=== PATIENT | male | born 1940 | race Caucasian/White ===

== ENCOUNTER 2017-01-25 12:15 | Emergency (ER) | payer MEDICARE, BC ==
[~2017-01-25] VITALS: Ht 180.3 cm; Wt 88.5 kg
--- NOTE | 2017-01-25 12:56 | PHYS DOC ---
Past Medical History Past Medical History: Hypertension Past Medical History Chronic renal failure Gout Alcohol Use: None Drug Use: None Adult General Chief Complaint Chief Complaint: BACK PAIN - NO INJURY HPI HPI Patient is a 76 year old male who presents with two-day history of some pain in the right thigh, gradual onset described as dull and does not radiate anywhere else other than the leg on the right side. Uncertain if the pain comes from the back seen by the chiropractor yesterday and they did not do a adjustment secondary to concerns for possible DVT in the right leg. Denies any flank pain dysuria or frequency or fever. Denies prior back injury or surgery. Does report history of chronic renal failure. Not on anticoagulants. Denies trauma. Review of Systems Review of Systems Constitutional: Denies fever or chills [] Eyes: Denies change in visual acuity, redness, or eye pain [] HENT: Denies nasal congestion or sore throat [] Respiratory: Denies cough or shortness of breath [] Cardiovascular: No additional information not addressed in HPI [] GI: Denies abdominal pain, nausea, vomiting, bloody stools or diarrhea [] : Denies dysuria or hematuria [] Musculoskeletal: Denies back pain or joint pain [] Integument: Denies rash or skin lesions [] Neurologic: Denies headache, focal weakness or sensory changes [] Endocrine: Denies polyuria or polydipsia [] Allergies Allergies Allergies Coded Allergies Type Severity Reaction Last Updated Verified No Known Drug Allergies 01/25/17 No Physical Exam Physical Exam Constitutional: Well developed, well nourished, no acute distress, non-toxic appearance. [] HENT: Normocephalic, atraumatic, bilateral external ears normal, oropharynx moist, no oral exudates, nose normal. [] Eyes: PERRLA, EOMI, conjunctiva normal, no discharge. [] Neck: Normal range of motion, no tenderness, supple, no stridor. [] Cardiovascular:Heart rate regular rhythm, no murmur [] Lungs & Thorax: Bilateral breath sounds clear to auscultation [] Abdomen: Bowel sounds normal, soft, no tenderness, no masses, no pulsatile masses. [] Skin: Warm, dry, no erythema, no rash. [] Back: No tenderness, no CVA tenderness. [No midline CT or L-spine tenderness. No bruising or ecchymosis.] Extremities: No tenderness, no cyanosis, no clubbing, ROM intact, no edema. [He does have prominent moderate varicosities in the veins of both legs. Leg does not appear swollen. 2+ pulses in the foot and ankle.] Neurologic: Alert and oriented X 3, normal motor function, normal sensory function, no focal deficits noted. [5 out of 5 motor strength in the upper and lower extremities, 2+ patellar reflexes, normal dorsiflexion and great toe bilaterally. Patient is able to walk without difficulty.] Psychologic: Affect normal, judgement normal, mood normal. [] Current Patient Data Vital Signs Vital Signs Date Time Temp Pulse Resp B/P (MAP) Pulse Ox O2 Delivery O2 Flow Rate FiO2 01/25/17 14:46 70 18 167/83 (111) 98 Room Air 01/25/17 12:40 98.3 98.3 Lab Values Patient refused any labs EKG EKG [] Radiology/Procedures Radiology/Procedures Lumbar x-ray shows degenerative joint disease no fractures images reviewed by me report reviewed by me from radiology. Ultrasound venous right lower extremity report reviewed by me negative for DVT [ ] Course & Med Decision Making Course & Med Decision Making Pertinent Labs and Imaging studies reviewed. (See chart for details) [Plan of care will include lumbar x-rays and ultrasound venous right leg to exclude DVT. Patient is declining pain meds at this moment in time.] Dragon Disclaimer Dragon Disclaimer This electronic medical record was generated, in whole or in part, using a voice recognition dictation system. Departure Departure Impression: Primary Impression: Right thigh pain Disposition: HOME, SELF-CARE Condition: STABLE Referrals: CLAUDETTE GONGORA MD (PCP) TAPAN BOURGEOIS MD January 25, 2017 12:56
--- NOTE | 2017-01-25 13:21 | RAD ---
Lumbar spine, 3 views, 01/25/2017: History: Low back pain radiating to the right leg The lumbar vertebral heights are well-maintained. The intervertebral disc spaces are well preserved. There are moderate scattered marginal spurs. There are mild degenerative changes involving the facet joints in the lower lumbar spine. No fracture or dislocation is evident. Aortoiliac calcific plaquing is present. IMPRESSION: 1. Mild scattered degenerative changes. 2. No acute bony abnormality is detected.
--- NOTE | 2017-01-25 13:51 | RAD ---
Indication right leg pain. Grayscale color Doppler and spectral imaging was performed. Examination was targeted to the veins of the right lower extremity. The common femoral, femoral and popliteal vessels demonstrate normal flow compressibility and augmentation. No thrombus is seen. The visualized calf veins appeared normal. The left common femoral vein appeared normal. IMPRESSION: Negative right lower extremity venous analysis for DVT
[2017-01-25 14:46] VITALS: BP 167/83
== END 2017-01-25 14:47 | disposition home or self-care (01) ==
LOC: ER 12:15
DX: I83.813 Varicose veins of bilateral lower extremities with pain (principal); I12.9 Hypertensive chronic kidney disease with stage 1 through stage 4 chronic kidney disease, or unspecified chronic kidney disease; N18.9 Chronic kidney disease, unspecified; M10.9 Gout, unspecified
CPT/HCPCS: 72100; 93971; 99284-25

== ENCOUNTER 2019-04-04 08:05 | Day surgery (SDC) | payer BC, MEDICARE ==
[~2019-04-04] VITALS: Ht 177.8 cm; Wt 84.0 kg
[~2019-04-04 08:05] MED LIST: ACETAMINOPHEN 500 MG TABLET PO ONE; ALLO100T PO; ASPI-630 PO; ATOR20TA58 PO; DUTA0.5C PO; HEPARIN SODIUM 5,000 UNIT in IV NORMAL SALINE 500ML BAG 500 ML IRR ONE; IV RINGERS,LACTATED 1000ML 1,000 ML IV SCH; LIDOCAINE 1% 20 ML VIAL. ONE; LIDOCAINE 1% PF 2 ML VIAL. ID PRN; LOSA-73 PO; METO-239 PO; ONDANSETRON PF 4 MG/2 ML VIAL. IV PRN; PAPAVERINE 60 MG/2 ML VIAL FOR OR ONLY. ONE; PROCHLORPERAZINE 10 MG/2 ML VIAL. IV PRN; SURGICEL FIBRILLAR 1X2 EACH. ONE; VIT1TABL71 PO; fentaNYL PF VIAL 100 MCG/2 ML VIAL IV PRN
[2019-04-04] MEDS ORDERED: IV NORMAL SALINE 1000ML BAG 1,000 ML IV SCH (08:45)
[2019-04-04] MEDS ORDERED: IV RINGERS,LACTATED 1000ML 1,000 ML IV SCH (08:45)
[2019-04-04 08:47] LABS: BASO % 1 % (0-3); EOS # 0.3 x10^3/uL (0.0-0.7); EOS % 4 % (0-3); HEMATOCRIT 33.1 % (39.0-53.0); HEMOGLOBIN 11.2 g/dL (13.0-17.5); LYMPH # 1.9 x10^3/uL (1.0-4.8); LYMPH % 31 % (24-48); MEAN CORPUSCULAR HEMOGLOBIN 32 pg (25-35); MEAN CORPUSCULAR HGB CONC 34 g/dL (31-37); MEAN CORPUSCULAR VOLUME 95 fL (79-100); MONO # 0.6 x10^3/uL (0.0-1.1); MONO % 10 % (0-9); NEUT # 3.4 x10^3/uL (1.8-7.7); NEUT % 55 % (31-73); PLATELET COUNT 151 x10^3/uL (140-400); RED BLOOD COUNT 3.49 x10^6/uL (4.30-5.70); RED CELL DISTRIBUTION WIDTH 13.6 % (11.5-14.5); WHITE BLOOD COUNT 6.2 x10^3/uL (4.0-11.0)
[2019-04-04 09:05] LABS: CALCIUM 8.9 mg/dL (8.5-10.1); CREATININE 3.1 mg/dL (0.7-1.3); GFR 19.6; POTASSIUM 4.7 mmol/L (3.5-5.1)
[2019-04-04] MEDS ORDERED: SEVOFLURANE 31 TO 60 MINUTES. IH ONE (09:56)
[2019-04-04] MEDS ORDERED: PROPOFOL 20 ML IV ONE (09:56)
[2019-04-04] MEDS ORDERED: LIDOCAINE 2% PF 5 ML VIAL. ONE (09:56)
[2019-04-04] MEDS ORDERED: DEXAMETHASONE SOD PHOS 4 MG/ML VIAL ONE (09:57)
[2019-04-04] MEDS ORDERED: ONDANSETRON PF 4 MG/2 ML VIAL. ONE (09:57)
[2019-04-04] MEDS ORDERED: PHENYLEPHRINE in 0.9% NACL PF 1 MG/10 ML SYRINGE. IV ONE (09:58)
[2019-04-04] MEDS ORDERED: ceFAZolin SODIUM 1 GM VIAL ONE ×2 (11:30)
--- NOTE | 2019-04-04 11:38 | DISCH ---
DISCHARGE INSTRUCTIONS Condition on Discharge Condition on Discharge: Stable Activity After Discharge Activity Instructions for Disc: Resume previous activity Other activity instructions: no heavy lifting for two weeks Bathing Instructions: Shower-keep dressing dry (may shower in 48 hours, keep clean and dry after) Wound Incision Care Wound/Incision Care: Keep wound elevated Contacting the DRCelia after DC Call your doctor for: If your condition worsens Follow-Up Follow up with: KEAGAN Benjamin APRN Apr 04, 2019 11:38
--- NOTE | 2019-04-04 11:41 | DISCH ---
DISCHARGE INSTRUCTIONS Condition on Discharge Condition on Discharge: Stable Activity After Discharge Activity Instructions for Disc: Resume previous activity Other activity instructions: no heavy lifting for two weeks Bathing Instructions: Shower-keep dressing dry (may shower in 48 hours, keep clean and dry after) Wound Incision Care Wound/Incision Care: Keep wound elevated Contacting the DRCelia after DC Call your doctor for: If your condition worsens Follow-Up Follow up with: Francine Peraza, 04/18 10:30 KEAGAN COOK APRN Apr 04, 2019 11:41
[2019-04-04] MEDS ORDERED: HEPARIN for IV BOLUS 10,000 UNIT/10 ML VIAL. ONE (12:05)
[2019-04-04] MEDS ORDERED: PHENYLEPHRINE 10 MG/ML VIAL. ONE (12:09)
[2019-04-04] MEDS ORDERED: fentaNYL PF VIAL 100 MCG/2 ML VIAL ONE (12:47)
--- NOTE | 2019-04-04 13:02 | PDOC ---
BRIEF OPERATIVE NOTE Date: Apr 04, 2019 Pre-Op Diagnosis ESRD Post-Op Diagnosis same Procedure Performed Left radial cephalic fistula Removal ganglion cyst Surgeon Dr. German Patients Transporter Keagan Cook NP Anesthesia Type: General Blood Loss 20cc Specimens Obtained left wrist ganglion cyst Findings good thrill and doppler signal Complications none Operative Note see dictated note KEAGAN COOK OCTAVE BOARD ASSEMBLER Apr 04, 2019 13:01
--- NOTE | 2019-04-04 13:06 | PDOC4 ---
OPERATIVE NOTE: April 04, 2019 Vascular surgery operative report Preoperative diagnosis: Chronic kidney disease stage IV Postoperative diagnosis: Same Surgeon: Carlos Mark DO, FACS, RPVI Asst.: Salina Walker NP Procedure: #1--creation of a left radiocephalic AV fistula #2--excision of a left ganglion cyst Estimated blood loss--minimal Complications: None Preoperative indications: This is a pleasant 78-year-old male who presents for AV fistula creation for permanent dialysis access. In addition he requested that a ganglion cyst. Excised at his left wrist which she'll be directly associated with her incision. All risks, benefits, and alternatives of the procedure were discussed with him today and his and they were both in agreement and understood all risks involved. Next Operative procedure: The patient was brought to the operative suite and placed in supine position. After stenosing general anesthesia the left upper extremity is prepped and draped in sterile fashion. Next a timeout procedure was performed. It was confirmed that the correct operative site was marked and draped and the patient did receive appropriate perioperative antibiotics. Following this a left wrist incision was made and carried through the skin and subcutaneous tissue. I identified the cephalic vein at the level of the wrist and this was circumferentially dissected both proximally and distally. The vein at the level of the wrist leading to the hand was ligated with silk ligatures and then the vein was divided. Several large venous tributaries were oversewn using 3-0 silk suture. Following this the radial artery was circumferentially dissected proximally and distally at the level of the wrist. Next the patient was administered heparin per weightbase protocol. After appropriate circulation time, the radial artery was controlled proximally and distally. Next an 11 blade scalpel was used to create an arteriotomy and this was extended using Macario scissors. Following this our vein was trimmed appropriately. Next an end-to-side anastomosis was created using 7-0 Prolene suture in a running fashion. Prior to completing the anastomosis I did backbleed and flush the vessels appropriately. Next the anastomosis was completed and flow was restored to the vein. Patient had excellent thrill throughout the cephalic vein and excellent flow through the proximal and distal radial artery. This was also confirmed using a Doppler. Next a incision was made along the forearm where a large venous tributary was loca derick. This was circumferentially dissected and ligated using a 3-0 silk suture. At this point in time the ganglion cyst was identified at the level of the wrist and this was circumferentially dissected. He had proximal and distal veins leading in and out of this ganglion cyst which are ligated with silk ligatures. Next the cyst was completely excised from the fascia. Was handed off the field as a specimen for permanent section. There was good hemostasis with a cyst was removed. After confirmation of hemostasis the wound was irrigated with anabolic impregnated solution. Next fibrillar was used over the raw surface area. Following this the skin was closed using running 4-0 Vicryl suture in a subcuticular fashion. Dermabond was applied to the skin incisions. The patient tolerated procedure well and was transferred to the postanesthesia care unit in stable condition. Salina Walker was present during the entire case and assisted with opening, the main arterial anastomosis, excision of the ganglion cyst, and subsequent closure. Next Carlos Mark DO, JAMEY, RPVI CARLOS MARK DO Apr 04, 2019 13:06
[2019-04-04] MEDS ORDERED: ACETAMINOPHEN 500 MG TABLET PO ONE (13:15)
[2019-04-04 13:30] VITALS: BP 124/59
--- NOTE | 2019-04-05 14:07 | PATHOLOGY ---
[facility] Accession Number: [id number] . 01 Material submitted: . wrist - LEFT WRIST GANGLION CYST. Modifiers: left . 01 Clinical history: . Necrotic kidney disease stage IV, possible ganglion cyst left wrist. . 02 Diagnosis: Fibrous and adipose tissue, left wrist: - Ganglion cyst. (JPM:blade; 04/05/2019) QMS/04/05/2019 . 02 Electronically signed: . Gato Quintana MD, Pathologist NPI- [id number] . 01 Gross description: . Received in formalin labeled "Leandro Sousa, left wrist ganglion cyst" is an irregular portion of pink-odonnell soft tissue measuring 1.5 x 0.5 x 0.4 cm. Multiple surgical clips are present. The specimen is submitted without sectioning in cassette A1. ([facility]; 04/04/2019) SY/SYC . 02 Pathologist provided ICD-10: M67.432 . 02 CPT . 528653 Specimen Comment: A courtesy copy of this report has been sent to Specimen Comment: [phone]. Specimen Comment: Report sent to Performed at: 01 [facility] [address] [facility] [address], [place] [id number] MD Cricket Fonseca MD Phone: [phone] Performed at: 02 [facility] [address] [place], [place] [id number] MD Gato Quintana MD Phone: [phone]
== END 2019-04-04 14:06 | disposition home or self-care (01) ==
LOC: SURG 08:05
PROVIDERS: ATTEND Surgery
DX: I12.0 Hypertensive chronic kidney disease with stage 5 chronic kidney disease or end stage renal disease (principal); N18.5 Chronic kidney disease, stage 5; M67.432 Ganglion, left wrist; J44.9 Chronic obstructive pulmonary disease, unspecified; M10.9 Gout, unspecified; E78.5 Hyperlipidemia, unspecified; N40.0 Benign prostatic hyperplasia without lower urinary tract symptoms; I25.10 Atherosclerotic heart disease of native coronary artery without angina pectoris; Z98.890 Other specified postprocedural states; Z88.5 Allergy status to narcotic agent; Z88.8 Allergy status to other drugs, medicaments and biological substances; Z79.82 Long term (current) use of aspirin; Z79.84 Long term (current) use of oral hypoglycemic drugs
CPT/HCPCS: 25111; 36415; 36821; 80048; 85025; 85610; 85730; 88304; A7015; J0690; J0696; J1100; J1644; J2001; J2370; J2405; J2704; J3010; J7040; J2440

== ENCOUNTER → 2020-08-11 | Outpatient (CLI) | payer MEDICARE, BC ==
[2020-06-16 11:00] VITALS: BP 134/67
[~2020-08-11] MED LIST changes: -ACETAMINOPHEN 500 MG TABLET PO ONE; +FERR325T72 PO; -HEPARIN SODIUM 5,000 UNIT in IV NORMAL SALINE 500ML BAG 500 ML IRR ONE; -IV RINGERS,LACTATED 1000ML 1,000 ML IV SCH; -LIDOCAINE 1% 20 ML VIAL. ONE; -LIDOCAINE 1% PF 2 ML VIAL. ID PRN; -ONDANSETRON PF 4 MG/2 ML VIAL. IV PRN; +PANT40TA77 PO; -PAPAVERINE 60 MG/2 ML VIAL FOR OR ONLY. ONE; -PROCHLORPERAZINE 10 MG/2 ML VIAL. IV PRN; +SUCR1TAB35 PO; -SURGICEL FIBRILLAR 1X2 EACH. ONE; -fentaNYL PF VIAL 100 MCG/2 ML VIAL IV PRN
== END ==
LOC: LAB 13:43
PROVIDERS: ATTEND Internal Medicine Gastroenterology
DX: Z01.812 Encounter for preprocedural laboratory examination (principal); Z20.828 Contact with and (suspected) exposure to other viral communicable diseases
CPT/HCPCS: U0003

== ENCOUNTER → 2020-08-14 | Day surgery (SDC) | payer MEDICARE, BC ==
[~2020-08-14] MED LIST changes: +IV NORMAL SALINE 1000ML BAG 1,000 ML IV ONE; +IV NORMAL SALINE 1000ML BAG 1,000 ML IV SCH; +LIDOCAINE 2% PF 5 ML VIAL. ONE; +PROPOFOL 10 MG/ML (20ML) VIAL. IV ONE
--- NOTE | 2020-08-14 13:33 | HP ---
ADMIT DATE: 08/14/2020 REASON FOR ADMISSION: Melena and abdominal pain. HISTORY OF PRESENT ILLNESS: A 79-year-old male with past medical history significant for gout, hyperlipidemia, hypertension is seen with anemia. Upper endoscopy during his stay was unrevealing. Colonoscopy is recommended. Bowel habits are regular. There have been no further difficulties. PAST MEDICAL HISTORY: Hypertension, chronic renal insufficiency, hyperlipidemia, gout. ALLERGIES: CODEINE, LEVOFLOXACIN, LISINOPRIL. MEDICATIONS: Include allopurinol, atorvastatin, Avodart, ferrous sulfate, losartan, metoprolol, pantoprazole, Carafate, vitamin D. PAST SURGICAL HISTORY: Status post hernia repair. FAMILY HISTORY: Significant for hypertension. REVIEW OF SYSTEMS: Per records. PHYSICAL EXAMINATION: GENERAL: Reveals a well-nourished, well-developed male who is alert, cooperative, in no acute distress. VITAL SIGNS: Temperature 98.5, pulse 90, respiratory rate 18. LUNGS: Clear. CARDIOVASCULAR: Reveals an S1, S2 without S3, S4 or appreciable murmur. ABDOMEN: Reveals a soft abdomen, normal bowel sounds, without appreciable hepatosplenomegaly. IMPRESSION AND RECOMMENDATIONS: Anemia with melena. The etiology is to be determined. Colonoscopy was recommended to assess for inflammatory bowel disease, colon polyps, colon cancer, AVMs and other pathology. KEILA POWERS MD DR: ULYSSES/alycia JOB#: [id number] / [id number]
== END | disposition home or self-care (01) ==
LOC: ENDOS 08:36
PROVIDERS: ATTEND Internal Medicine Gastroenterology
DX: D50.0 Iron deficiency anemia secondary to blood loss (chronic) (principal); K92.1 Melena; K64.0 First degree hemorrhoids; K57.30 Diverticulosis of large intestine without perforation or abscess without bleeding; M10.9 Gout, unspecified; I12.0 Hypertensive chronic kidney disease with stage 5 chronic kidney disease or end stage renal disease; N18.6 End stage renal disease; K21.9 Gastro-esophageal reflux disease without esophagitis; E78.00 Pure hypercholesterolemia, unspecified; J44.9 Chronic obstructive pulmonary disease, unspecified; M19.90 Unspecified osteoarthritis, unspecified site; Z99.2 Dependence on renal dialysis; Z85.028 Personal history of other malignant neoplasm of stomach; Z79.899 Other long term (current) drug therapy; Z98.890 Other specified postprocedural states; Z87.891 Personal history of nicotine dependence; Z88.1 Allergy status to other antibiotic agents; Z88.5 Allergy status to narcotic agent; Z88.8 Allergy status to other drugs, medicaments and biological substances
CPT/HCPCS: 45378; J2704

== ENCOUNTER 2021-02-12 10:34 | Emergency (ER) | payer MEDICARE, BC ==
[~2021-02-12] VITALS: Ht 180.3 cm; Wt 83.6 kg
[~2021-02-12 10:34] MED LIST changes: -IV NORMAL SALINE 1000ML BAG 1,000 ML IV ONE; -IV NORMAL SALINE 1000ML BAG 1,000 ML IV SCH; -LIDOCAINE 2% PF 5 ML VIAL. ONE; -PROPOFOL 10 MG/ML (20ML) VIAL. IV ONE
--- NOTE | 2021-02-12 12:21 | ED.ADGEN ---
Past Medical History Past Medical History: Hypertension, Renal Disease Additional Past Medical Histor: GOUT, Stage V renal disease Past Surgical History: Other Additional Past Surgical Histo: BIOPSY- LUNG, HERNIA REP- INGUI/UMB, left arm AV fistula Smoking Status: Former Smoker Alcohol Use: None Drug Use: None General Adult EDM: Chief Complaint: ABDOMINAL PAIN HPI: HPI: Patient is a 80 year old coming in after being seen at his primary care provider's office today. Patient has been having intermittent epigastric abdominal pain after eating. Denies any vomiting or diarrhea. Had normal bowel movement earlier today. Patient is a significant for GI bleeding from ulcers about 8 months ago. Had to be transfused 4 units of blood. Patient denies any blood or melena. Also has a history of stage 5 CKD states that he has been having increased urination today. Review of Systems: Review of Systems: All other systems within normal limits except for as noted in the HPI Allergies: Allergies: Allergies Coded Allergies Type Severity Reaction Last Updated Verified levofloxacin Allergy Severe Anaphylaxis 01/25/21 Yes codeine Adverse Reaction Intermediate Nausea and Vomiting 01/25/21 Yes lisinopril Adverse Reaction Intermediate Nausea 01/25/21 Yes Physical Exam: PE: Constitutional: Well developed, well nourished, no acute distress, non-toxic appearance. [] HENT: Normocephalic, atraumatic, bilateral external ears normal, nose normal. [] Eyes: PERRLA, conjunctiva normal, no discharge. [] Neck: No rigidity, supple, no stridor. [] Cardiovascular: Regular rate and rhythm, brisk cap refill [] Lungs & Thorax: Non labored symmetric respirations, no tachypnea or respiratory distress [] Abdomen: Soft, nondistended, mild epigastric tenderness palpation. Skin: Warm, dry, no erythema, no rash. [] Back: Unremarkable Extremities: No deformities, range of motion grossly intact, no lower extremity edema [] Neurologic: Alert and oriented X 3, no focal deficits noted. [] Psychologic: Affect normal, judgement normal, mood normal. [] Current Patient Data: Labs: Laboratory Tests Test 02/12/21 10:44 02/12/21 12:14 Urine Collection Type Unknown Urine Color Yellow Urine Clarity Clear Urine pH 5.5 (<5.0-8.0) Urine Specific [place] 1.010 (1.000-1.030) Urine Protein 30 mg/dL (NEG-TRACE) Urine Glucose (UA) Negative mg/dL (NEG) Urine Ketones (Stick) Negative mg/dL (NEG) Urine Blood Small (NEG) Urine Nitrite Negative (NEG) Urine Bilirubin Negative (NEG) Urine Urobilinogen Dipstick 0.2 mg/dL (0.2 mg/dL) Urine Leukocyte Esterase Negative (NEG) Urine RBC Occ /HPF (0-2) Urine WBC Occ /HPF (0-4) Urine Bacteria 0 /HPF (0-FEW) White Blood Count 5.8 x10^3/uL (4.0-11.0) Red Blood Count 3.57 x10^6/uL (4.30-5.70) L Hemoglobin 11.5 g/dL (13.0-17.5) L Hematocrit 34.2 % (39.0-53.0) L Mean Corpuscular Volume 96 fL (79-100) Mean Corpuscular Hemoglobin 32 pg (25-35) Mean Corpuscular Hemoglobin Concent 34 g/dL (31-37) Red Cell Distribution Width 13.8 % (11.5-14.5) Platelet Count 167 x10^3/uL (140-400) Neutrophils (%) (Auto) 56 % (31-73) Lymphocytes (%) (Auto) 24 % (24-48) Monocytes (%) (Auto) 15 % (0-9) H Eosinophils (%) (Auto) 5 % (0-3) H Basophils (%) (Auto) 0 % (0-3) Neutrophils # (Auto) 3.3 x10^3/uL (1.8-7.7) Lymphocytes # (Auto) 1.4 x10^3/uL (1.0-4.8) Monocytes # (Auto) 0.9 x10^3/uL (0.0-1.1) Eosinophils # (Auto) 0.3 x10^3/uL (0.0-0.7) Basophils # (Auto) 0.0 x10^3/uL (0.0-0.2) Sodium Level 139 mmol/L (136-145) Potassium Level 5.1 mmol/L (3.5-5.1) Chloride Level 107 mmol/L (98-107) Carbon Dioxide Level 22 mmol/L (21-32) Anion Gap 10 (6-14) Blood Urea Nitrogen 54 mg/dL (8-26) H Creatinine 3.8 mg/dL (0.7-1.3) H Estimated GFR (Cockcroft-Gault) 15.4 BUN/Creatinine Ratio 14 (6-20) Glucose Level 104 mg/dL (70-99) H Calcium Level 9.2 mg/dL (8.5-10.1) Total Bilirubin 0.3 mg/dL (0.2-1.0) Aspartate Amino Transferase (AST) 16 U/L (15-37) Alanine Aminotransferase (ALT) 19 U/L (16-63) Alkaline Phosphatase 69 U/L (46-116) Troponin I Quantitative < 0.017 ng/mL (0.000-0.055) NV-Wxk-N-Type Natriuretic Peptide 418 pg/mL (0-449) Total Protein 8.4 g/dL (6.4-8.2) H Albumin 3.8 g/dL (3.4-5.0) Albumin/Globulin Ratio 0.8 (1.0-1.7) L Lipase 431 U/L (73-393) H Laboratory Tests 02/12/21 12:14 Laboratory Tests 02/12/21 12:14 Vital Signs: Vital Signs Date Time Temp Pulse Resp B/P (MAP) Pulse Ox O2 Delivery O2 Flow Rate FiO2 02/12/21 13:00 76 174/70 (104) 99 Room Air 02/12/21 11:30 98.3 16 98.3 EKG: EKG: [] Heart Score: C/O Chest Pain: No Risk Factors: Risk Factors: DM, Current or recent (<one month) smoker, HTN, HLP, family history of CAD, obesity. Risk Scores: Score 0 - 3: 2.5% MACE over next 6 weeks - Discharge Home Score 4 - 6: 20.3% MACE over next 6 weeks - Admit for Clinical Observation Score 7 - 10: 72.7% MACE over next 6 weeks - Early Invasive Strategies Radiology/Procedures: Radiology/Procedures: [facility] [address] [place] [address] IMAGING REPORT Signed PATIENT: PETER OWENS RACCOUNT: [id number] : 1940 LOCATION: ER AGE: 80 SEX: M EXAM STATUS: REG ER ORD. PHYSICIAN: BENIGNO AGEE MD REASON: epigastric paim, h/o GI bleed PROCEDURE: CT ABDOMEN PELVIS WO CONTRAST EXAM: CT ABDOMEN/PELVIS WITHOUT CONTRAST. HISTORY: Epigastric pain, gastrointestinal hemorrhage. TECHNIQUE: Computed tomography of the abdomen and pelvis was performed without intravenous contrast. One or more of the following individualized dose reduction techniques were utilized for this examination: 1. Automated exposure control. 2. Adjustment of the mA and/or kV according to patient size. 3. Use of iterative reconstruction technique. COMPARISON: 07/13/2013, 06/12/2020. FINDINGS: Lung windows through the visualized portions of the bases reveal aldrich bpleural interstitial line thickening and mild cystic change consistent with interstitial lung disease and fibrosis. A mostly calcified mass in the right lower lobe measures 3.4 x 1.8 cm. There are some adjacent pleural calcifications. Bone windows reveal no suspicious lesions. The contour of the gastric cardia suggests a 3.9 x 2.5 cm mass posteroinferiorly. This morphology suggests a gastrointestinal stromal tumor. A small gallstone is noted. The liver, pancreas, adrenal glands, spleen and ki dneys are unremarkable without contrast. There are no pathologically enlarged lymph nodes. Sigmoid diverticulosis is moderate. There is no evidence of appendicitis. There is no small bowel obstruction. A 2.4 x 1 0.9 cm soft tissue density along the right internal inguinal ring suggests changes of prior inguinal hernia repair. IMPRESSION: 1. Suspect a 3.9 x 2.5 cm mass along the gastric cardia consistent with a gastrointestinal stromal tumor. Endoscopy is suggested for further evaluation. 2. Cholelithiasis without evidence of acute cholecystitis. 3. Interstitial lung disease in the bases. A densely calcified 3.4 cm right lower lobe mass appears stable given differences in technique and an inflammatory etiology is favored. Electronically signed by: Everardo Chiang MD (02/12/2021 2:52 PM) [id number] DICTATED and SIGNED BY: JENNI CHIANG MD DATE: 02/12/21 [id number] [] Course & Med Decision Making: Course & Med Decision Making Pertinent Labs and Imaging studies reviewed. (See chart for details) Discussed CT findings with patient's primary care provider, Dr. Gerber, and the recommendation for GI follow-up. She would like him to follow-up with Dr. Bejarano. She placed a consult. [] Anabel Disclaimer: Anabel Disclaimer: This electronic medical record was generated, in whole or in part, using a voice recognition dictation system. Departure Departure Impression: Primary Impression: Epigastric pain Disposition: HOME / SELF CARE / HOMELESS Condition: STABLE Referrals: CLAUDETTE GERBER MD (PCP) GABRIEL PAREDES MD Additional Instructions: [facility] [address], [address] [place] [address] BENIGNO AGEE MD Feb 12, 2021 12:21
[2021-02-12 13:14] LABS: BILIRUBIN,URINE NEGATIVE (NEG); CLARITY,URINE CLEAR; COLOR,URINE YELLOW; NITRITE,URINE NEGATIVE (NEG); PH,URINE 5.5 (<5.0-8.0); PROTEIN,URINE 30 mg/dL (NEG-TRACE); UROBILINOGEN,URINE 0.2 mg/dL (0.2 mg/dL)
[2021-02-12 13:19] LABS: BACTERIA,URINE 0 /HPF (0-FEW); RBC,URINE OCC /HPF (0-2); WBC,URINE OCC /HPF (0-4)
[2021-02-12 13:28] LABS: BASO % 0 % (0-3); EOS # 0.3 x10^3/uL (0.0-0.7); EOS % 5 % (0-3); HEMATOCRIT 34.2 % (39.0-53.0); HEMOGLOBIN 11.5 g/dL (13.0-17.5); LYMPH # 1.4 x10^3/uL (1.0-4.8); LYMPH % 24 % (24-48); MEAN CORPUSCULAR HEMOGLOBIN 32 pg (25-35); MEAN CORPUSCULAR HGB CONC 34 g/dL (31-37); MEAN CORPUSCULAR VOLUME 96 fL (79-100); MONO # 0.9 x10^3/uL (0.0-1.1); MONO % 15 % (0-9); NEUT # 3.3 x10^3/uL (1.8-7.7); NEUT % 56 % (31-73); PLATELET COUNT 167 x10^3/uL (140-400); RED BLOOD COUNT 3.57 x10^6/uL (4.30-5.70); RED CELL DISTRIBUTION WIDTH 13.8 % (11.5-14.5); WHITE BLOOD COUNT 5.8 x10^3/uL (4.0-11.0)
[2021-02-12 13:39] LABS: CALCIUM 9.2 mg/dL (8.5-10.1); CREATININE 3.8 mg/dL (0.7-1.3); GFR 15.4; POTASSIUM 5.1 mmol/L (3.5-5.1)
[2021-02-12 13:45] LABS: ALBUMIN 3.8 g/dL (3.4-5.0); ALBUMIN/GLOBULIN RATIO 0.8 (1.0-1.7); TOTAL BILIRUBIN 0.3 mg/dL (0.2-1.0); TOTAL PROTEIN 8.4 g/dL (6.4-8.2)
[2021-02-12 14:40] VITALS: BP 163/93
--- NOTE | 2021-02-12 14:55 | RAD ---
EXAM: CT ABDOMEN/PELVIS WITHOUT CONTRAST. HISTORY: Epigastric pain, gastrointestinal hemorrhage. TECHNIQUE: Computed tomography of the abdomen and pelvis was performed without intravenous contrast. One or more of the following individualized dose reduction techniques were utilized for this examinat ion: 1. Automated exposure control. 2. Adjustment of the mA and/or kV according to patient size. 3. Use of iterative reconstruction technique. COMPARISON: 07/13/2013, 06/12/2020. FINDINGS: Lung windows through the visualized portions of the bases reveal subpleural interstitial li ne thickening and mild cystic change consistent with interstitial lung disease and fibrosis. A mostly calcified mass in the right lower lobe measures 3.4 x 1.8 cm. There are some adjacent pleural calcif ications. Bone windows reveal no suspicious lesions. The contour of the gastric cardia suggests a 3.9 x 2.5 cm mass posteroinferiorly. This morphology sug gests a gastrointestinal stromal tumor. A small gallstone is noted. The liver, pancreas, adrenal glands, spleen and kidneys are unremarkable without contrast. There are no pathologically enlarged lymph nodes. Sigmoid diverticulosis is moderate. There is no evidence of appendicitis. There is no small bowel obs truction. A 2.4 x 1 0.9 cm soft tissue density along the right internal inguinal ring suggests change s of prior inguinal hernia repair. IMPRESSION: 1. Suspect a 3.9 x 2.5 cm mass along the gastric cardia consistent with a gastrointestinal stromal tu mor. Endoscopy is suggested for further evaluation. 2. Cholelithiasis without evidence of acute cholecystitis. 3. Interstitial lung disease in the bases. A densely calcified 3.4 cm right lower lobe mass appears s table given differences in technique and an inflammatory etiology is favored. Electronically signed by: Everardo Chiang MD (02/12/2021 2:52 PM) [id number]
--- NOTE | 2021-02-12 17:05 | EKG ---
[facility] [address] [place] [address] Test Date: 2021-02-12 Test Time: 13:04:56 Pat Name: PETER OWENS Department: Room: Gender: M Operations Scheduler: : 1940 Requested By: BENIGNO AGEE Order Number: [id number] Reading MD: Measurements Intervals [place] Rate: 72 P: 49 GA: 184 QRS: 7 QRSD: 86 T: 18 QT: 372 QTc: 409 Interpretive Statements SINUS RHYTHM NORMAL ECG RI6.02 No previous ECG available for comparison
== END 2021-02-12 15:52 | disposition home or self-care (01) ==
LOC: ER 10:34
DX: R10.13 Epigastric pain (principal); I12.0 Hypertensive chronic kidney disease with stage 5 chronic kidney disease or end stage renal disease; N18.5 Chronic kidney disease, stage 5; M10.9 Gout, unspecified; Z87.891 Personal history of nicotine dependence; Z88.1 Allergy status to other antibiotic agents; Z88.5 Allergy status to narcotic agent; Z88.6 Allergy status to analgesic agent
CPT/HCPCS: 36415; 74176; 80053; 81001; 83690; 83880; 84484; 85025; 93005; 99285-25